=== PATIENT | female | born 1945 | race Caucasian/White ===

== ENCOUNTER 2017-10-12 15:14 | Inpatient (IN) | payer OTHER ==
[~2017-10-12] VITALS: Ht 165.1 cm; Wt 57.2 kg
--- NOTE | 2017-10-12 15:16 | ED DYSPNEA/ASTHMA COMPLAINT ---
History of Present Illness General Chief Complaint: Dyspnea (COPD, CHF, Other) Stated Complaint: SOB Source: patient, old records Exam Limitations: no limitations Vital Signs & Intake/Output Vital Signs & Intake/Output Vital Signs Date Time Temp Pulse Resp B/P B/P Pulse O2 O2 Flow FiO2 Mean Ox Delivery Rate 10/12 1519 98.8 102 22 142/60 98 Aerosol 10L Mask Allergies Coded Allergies: MDX - Cefuroxime (From CEFTIN) (Mild, RASH 10/09/11) Uncoded Allergies: DUST (Severe, RESPIRATORY 02/22/12) ENVIRONMENTAL (Severe, RESPIRATORY 02/22/12) HAY (Severe, RESPIRATORY 02/22/12) Triage Nurses Notes Reviewed? yes Onset: Abrupt Duration: week(s): (1), constant, getting worse Timing: recent history Severity: moderate, severe Activities at Onset: none Prior Episodes/Possible Cause: occasional episodes Associated Symptoms: cough HPI: 72-year-old female nonsmoker history of COPD not on oxygen at home hypertension presents stating that since last week while vacationing in [place] she's had progressively worsening shortness of breath cough productive of green sputum getting worse. She went to an urgent care today at which time EMS was called. She was medicated with Solu-Medrol and breathing treatments in route. She states she checks her oxygen saturation at home which he is normally 90-91% on room air. She denies any leg swelling abdominal pain nausea vomiting diarrhea or she does report a subjective fever chills. (Antolin Anna) Past History Travel History Traveled to [place] past 21 day No Medical History Any Pertinent Medical History? see below for history Cardiovascular: hypertension Respiratory: COPD Tetanus Vaccine: 03/14/12 Surgical History Surgical History: non-contributory Psychosocial History What is your primary language Sierra Leonean Tobacco Use: Never used Family History Hx Contributory? No (Antolin Anna) Review of Systems Review of Systems Constitutional: Reports: see HPI. Comments Review of systems: See HPI, All other systems negative. Constitutional, chills fever HEENT: no sore throat no congestion Cardiovascular: No chest pain , no palpitation Skin: no rashes, no change in skin Respiratory: See HPI GI: No nausea no vomiting, no diarrhea : No dysuria Muscle skeletal: No joint pain, no back pain, no neck pain, Neurologic: , no headache Heme/endocrine: No bruising Immunology: No lymphadenopathy (Antolin Anna) Physical Exam Physical Exam General Appearance: well developed/nourished, alert, awake Respiratory: decreased breath sounds, wheezing Comments: Well-developed well-nourished person in no acute distress HEENT: Normal EENT exam; PERRL, EOMI. HEAD is atraumatic. moist mucous membranes. Neck: Supple, no lymphadenopathy, normal range of motion Back: Full range of motion Cardiovascular: Regular rate and rhythms no murmur Respiratory: No respiratory distress. Patient speaking in 3-4 word sentences, decreased breath sounds bilaterally wheezing and noted in all lung shi no rhonchi no rales Abdomen: Soft, nontender Extremity: No edema, full range of motion of extremities Neuro: Alert oriented x3, motor sensory normal, There were no obvious focal neurologic abnormalities. Skin: No appreciable rash on exposed skin, skin is warm and dry. No diaphoresis Psych: Mood and affect is normal, memory and judgment is normal. Core Measures ACS in differential dx? Yes CVA/TIA Diagnosis No Sepsis Present: No Sepsis Focused Exam Completed? No (Jorge GARCIA,Antolin) Progress Differential Diagnosis: asthma, AMI, bronchitis, costochondritis, CHF, musculoskeletal pain, pulmonary embolism, pneumonia, pneumothorax, unstable angina Diagnostic Imaging: Viewed by Me: Radiology Read. Discussed w/RAD: Radiology Read. Radiology Impression: PATIENT: CINDY RODRÍGUEZ PRESENT AGE: 72 PATIENT ACCOUNT NO: [id number] : 47 LOCATION: [facility] ORDERING PHYSICIAN: Antolin GARCIA SERVICE DATE: 10/12/17 EXAM TYPE: RAD - XRY-PORTABLE CHEST XRAY EXAMINATION: XR PORTABLE CHEST CLINICAL INFORMATION: Shortness of breath. Cough. COMPARISON: Chest x-ray 11/19/2010 TECHNIQUE: Portable frontal view of the chest was obtained. 3:58 PM FINDINGS: There is hyperinflation of lungs with flattening of the diaphragm. There is generalized diffuse streaky and patchy airspace opacities without air bronchograms in the right lower lobe. This is consistent with infiltrate. The left lung is clear. There is no significant central pulmonary vascular congestion. The heart size is normal. The cardiac and mediastinal contours are normal. There are calcifications of the aortic arch. IMPRESSION: Infiltrate right lower lobe. DICTATED BY: Arturo Johnson MD DATE/TIME DICTATED:03/26/18 / 1632 DISTRIBUTION DRIVER:LOPEZ DATE/TIME TRANSCRIBED:10/12/171631 CONFIDENTIAL, DO NOT COPY WITHOUT APPROPRIATE AUTHORIZATION. <Electronically signed in Other Vendor System> SIGNED BY: Elizabeth TITUS,Arturo 10/12/171638 Initial ED EKG: stach at 100, no acute st seg changes, normal axis Rhythm Strip: sinus tachycardia (Antolin Anna) Plan of Care: Orders Procedure Date/time Status Regular Diet 10/13 D Active Regular Diet 10/13 B Active Misc Message 10/12 1701 Active ED Holding Orders 10/12 1701 Active Admit to inpatient 10/12 170 Active Vital Signs 10/12 170 Active Code Status 10/12 170 Active EKG 10/12 1537 Active RAPID VIRAL INFLUENZA A 10/12 152 Active BLOOD CULTURE 10/12 152 Active TROPONIN LEVEL 10/12 152 Complete LACTIC ACID 10/12 152 Complete COMPREHENSIVE METABOLIC PANEL 10/12 152 Complete CBC WITHOUT DIFFERENTIAL 10/12 152 Complete B-TYPE NATRIURETIC PEP (BNP) 10/12 152 Complete Current Medications Sig/Dylon Start time Last Medication Dose Stop Time Status Admin Azithromycin 500 MG ONCE ONE 10/12 1700 AC (Zithromax) 10/12 1759 Dextrose/Water 250 ML (D5W) Ceftriaxone Sodium 1,000 MG ONCE ONE 10/12 1700 UNVr (Rocephin) 10/12 1701 Laboratory Tests 10/12/17 1540: Anion Gap 10, Estimated GFR > 60, BUN/Creatinine Ratio 20.0, Glucose 151 H, Lactic Acid 1.0, Calcium 9.1, Total Bilirubin 0.7, AST 100 H, ALT 140 H, Alkaline Phosphatase 228 H, Troponin I 0.03, Iaw-S-Ifqqawzuiwp Pept 933 H, Total Protein 6.8, Albumin 3.5, Globulin 3.3, Albumin/Globulin Ratio 1.1, CBC w Diff NO MAN DIFF REQ, RBC 4.72, MCV 89.2, MCH 29.3, MCHC 32.8 L, RDW 14.1, MPV 10.4, Gran % 83.3 H, Lymphocytes % 5.0 L, Monocytes % 11.5 H, Eosinophils % 0.1, Basophils % 0.1, Absolute Granulocytes 13.0 H, Absolute Lymphocytes 0.8 L , Absolute Monocytes 1.8 H, Absolute Eosinophils 0, Absolute Basophils 0 Microbiology 10/12 1540 BLOOD: Blood Culture - RECD 10/12 1525 NASOPHARYN: Influenza Virus A & B Rapid Smear - ORD 10/12 1525 BLOOD: Blood Culture - ORD Patient is medicated with Solu-Medrol in route she was given 2 breathing treatments at the urgent care and by EMS prior to arrival she is 90-91% on 39 L. She states she is normally 90% on room air at home. Case discussed with Dr. Dalal (Antolin Anna) (Katlin TITUS,Patrice Munoz) Departure Departure Time of Disposition: 1650 Disposition: STILL A PATIENT Condition: Stable Clinical Impression Primary Impression: Pneumonia Secondary Impressions: COPD exacerbation Referrals: Dev TITUS,Zbigniew Crocker (PCP/Family) Departure Forms: Customer Survey General Discharge Information Admission Note Spoke With: Juaquin Julien MD Documentation of Exam: Documentation of any treatments & extenuating circumstances including Concerns Regarding Discharge (functional status, medication knowledge or non-compliance, living conditions, etc.) that warrant an admission rather than observation: iv abx, iv steroids, trend labs, resp tx prn, premature discharge would be medically harmful, she is not normally o2 dependent (Antolin Anna) PA/ELECTRO PLATER Co-Sign Statement Statement: ED Attending supervision documentation- [X] I saw and evaluated the patient. I have also reviewed all the pertinent lab results and diagnostic results. I agree with the findings and the plan of care as documented in the PA's/ELECTRO PLATER's documentation. Patient presents for evaluation of worsening shortness of breath. Physical examination reveals severely diminished air entry bilaterally with no wheezes rales or rhonchi. [] I have reviewed the ED Record and agree with the PA's/ELECTRO PLATER's documentation. [] Additions or exceptions (if any) to the PAs/ELECTRO PLATER's note and plan are summarized below: [] (Katlin TITUS,Patrice Munoz) Critical Care Note Critical Care Note Critical Care Time: non-applicable (Antolin Anna)
[2017-10-12 15:55] LABS: ABSOLUTE BASOPHIL COUNT 0 /CUMM (0.0-0.2); ABSOLUTE EOSINOPHIL COUNT 0 /CUMM (0.0-0.7); ABSOLUTE LYMPH COUNT 0.8 /CUMM (1.2-3.4); ABSOLUTE MONOCYTE COUNT 1.8 /CUMM (0.10-0.60); BASOPHIL % 0.1 % (0.0-2.0); EOSINOPHIL % 0.1 % (0-5); HEMATOCRIT 42.1 % (37-47); MEAN CORPUSCULAR HGB 29.3 PG (27.0-31.0); MEAN CORPUSCULAR HGB CONC 32.8 G/DL (33.0-37.0); MEAN CORPUSCULAR VOLUME 89.2 FL (81.0-99.0); MEAN PLATELET VOLUME 10.4 FL (7.4-10.4); PLATELET COUNT 232 /CUMM (130-400); RBC DISTRIBUTION WIDTH 14.1 % (11.5-14.5); RED BLOOD CELL CT 4.72 /CUMM (4.20-5.40); WHITE BLOOD CELL COUNT 15.6 /CUMM (4.8-10.8)
[2017-10-12 15:58] LABS: GRANULOCYTE % 83.3 % (42.2-75.2)
--- NOTE | 2017-10-12 16:39 | RADIOLOGY REPORT ---
EXAMINATION: XR PORTABLE CHEST CLINICAL INFORMATION: Shortness of breath. Cough. COMPARISON: Chest x-ray 11/19/2010 TECHNIQUE: Portable frontal view of the chest was obtained. 3:58 PM FINDINGS: There is hyperinflation of lungs with flattening of the diaphragm. There is generalized diffuse streaky and patchy airspace opacities without air bronchograms in the right lower lobe. This is consistent with infiltrate. The left lung is clear. There is no significant central pulmonary vascular congestion. The heart size is normal. The cardiac and mediastinal contours are normal. There are calcifications of the aortic arch. IMPRESSION: Infiltrate right lower lobe.
--- NOTE | 2017-10-12 17:38 | History & Physical ---
Carol TITUS,[facility] 10/12/17 7234: General Information and HPI MD Statement: I have seen and personally examined CINDY RODRÍGUEZ and documented this H&P. The patient is a 72 year old F who presented with a patient stated chief complaint of [Cough, SOB]. Source of Information: patient, old records Exam Limitations: no limitations History of Present Illness: 72 YO Female, non smoker with a PMH of copd, HTN, HLD and hypothyroidism who comes in with worseing cough productive of greeninsh sputum, shortness of breath x 5 days. She had just come back from a girls trip in [place] and on the flight back, one of her friends became sick and was coughing the whole time. She reports subjective fever on the first day and chills but denies nausea, vomiting , chest pain, sorethroat, difficuty swallowing, palpitations, diarrhea or abdomina pain. No trouble with swallowing food. She has a FH of COPD-Father, sister but they were smokers. She is up to date on her influenza and PNA shots her ground operations superintendent is Dr. Steven. Allergies/Medications Compliance With Home Meds: GOOD Past History Travel History Traveled to [place] past 21 day No Medical History Cardiovascular: hypertension Respiratory: COPD Tetanus Vaccine: 03/14/12 Surgical History Surgical History: non-contributory Past Family/Social History Family History Relations & Conditions if any FATHER FH: COPD (chronic obstructive pulmonary disease) SISTER FH: COPD (chronic obstructive pulmonary disease) Review of Systems Review of Systems Constitutional: Reports: chills, fever, malaise, weakness. Respiratory: Reports: cough, short of breath, sputum production, wheezing. Denies: hemoptysis. GI: Denies: abdominal pain, constipation, diarrhea, nausea, changes in stool. Genitourinary: Denies: discharge, dysuria, frequency. Musculoskeletal: Denies: joint pain, joint swelling. Skin: Denies: jaundice, rash. Post Menopausal: Yes Exam & Diagnostic Data Last 24 Hrs of Vital Signs/I&O Vital Signs Date Time Temp Pulse Resp B/P B/P Pulse O2 O2 Flow FiO2 Mean Ox Delivery Rate 10/12 1724 98.3 89 20 133/59 96 Nasal 3.0L Cannula 10/12 1519 98.8 102 22 142/60 98 Aerosol 10L Mask Intake & Output 10/12 1600 10/12 0800 03/26 0000 Intake Total Output Total Balance Patient 126 lb Weight Weight Reported by Patient Measurement Method Physical Exam General Appearance Alert, Oriented X3, Cooperative, No Acute Distress Skin No Significant Lesion Sepsis Skin Exam (color): Normal for Ethnicity HEENT PERRLA, EOMI, Mucous Membr. moist/pink Cardiovascular Regular Rate, Normal S1, Normal S2 Abdomen Normal Bowel Sounds, Soft, No Tenderness Extremities No Edema, Normal Pulses Sepsis Peripheral Pulse Location: Dorsalis Pedis Sepsis Peripheral Pulse Exam: Normal Last 24 Hrs of Labs/Clifford: Laboratory Tests 10/12/17 1540: Anion Gap 10, Estimated GFR > 60, BUN/Creatinine Ratio 20.0, Glucose 151 H, Lactic Acid 1.0, Calcium 9.1, Total Bilirubin 0.7, AST 100 H, ALT 140 H, Alkaline Phosphatase 228 H, Troponin I 0.03, Bmr-[id number]-Xwrdfotpijb Pept 933 H, Total Protein 6.8, Albumin 3.5, Globulin 3.3, Albumin/Globulin Ratio 1.1, CBC w Diff NO MAN DIFF REQ, RBC 4.72, MCV 89.2, MCH 29.3, MCHC 32.8 L, RDW 14.1, MPV 10.4, Gran % 83.3 H, Lymphocytes % 5.0 L, Monocytes % 11.5 H, Eosinophils % 0.1, Basophils % 0.1, Absolute Granulocytes 13.0 H, Absolute Lymphocytes 0.8 L , Absolute Monocytes 1.8 H, Absolute Eosinophils 0, Absolute Basophils 0 Microbiology 10/12 1540 BLOOD: Blood Culture - RECD 10/12 1525 NASOPHARYN: Influenza Virus A & B Rapid Smear - ORD 10/12 1525 BLOOD: Blood Culture - ORD Assessment/Plan Assessment: 72 YO Female, non smoker with a PMH of copd, HTN, HLD and hypothyroidism who comes in with worseing cough productive of greeninsh sputum, shortness of breath x 5 days. Problem List 1. CAP 2. COPD exacerbation Plan Admit to [facility] Ceftriaxone/azithromycin Solumedrol 40mg BID Sputum culture, blood cuture x 2 Check Legionella, strept pneumo Ags Pulm consult Continue her impt home meds TRC nebs, O2 as needed FC Heart healthy diet SC lovenox for DVT ppx Follow attending recs As Ranked By This Provider Problem List: 1. Pneumonia 2. COPD exacerbation Core Measures/Misc (04/05) Acute Coronary Syndrome ACS Diagnosis: No Congestive Heart Failure Congestive Heart Failure Diagnosis No Cerebrovascular Accident CVA/TIA Diagnosis: No VTE (View Protocol) VTE Risk Factors Age>40 No Mechanical VTE Prophylaxis d/t N/A MechProphylax Ordered No VTE Pharm Prophylaxis d/t NA PharmProphylax ordered Sepsis (View protocol) Sepsis Present: No Resident Review Statement Resident Statement: examined this patient Juaquin Julien MD 10/12/17 4324: General Information and HPI Allergies/Medications Allergies: Coded Allergies: cefuroxime (Intermediate, RASH 10/13/17) Uncoded Allergies: DUST (Severe, RESPIRATORY 02/22/12) ENVIRONMENTAL (Severe, RESPIRATORY 02/22/12) HAY (Severe, RESPIRATORY 02/22/12) Home Med list Amlodipine Besylate 10 MG TABLET 1 TAB PO DAILY HIGH BLOOD PRESSURE (Reported ) Amoxicillin/Potassium Clav (Augmentin 875-125 Tablet) 875 MG-125 MG TABLET 1 TAB PO BID PNEUMONIA Azithromycin 250 MG TABLET 1 TAB PO DAILY COPD Fluticasone/Salmeterol (Advair 250-50 Diskus) 250 MCG-50 MCG/DOSE BLST.W.DEV 1 PUF INH BID COPD (Reported) Furosemide 20 MG TABLET 1 TAB PO DAILY HIGH BLOOD PRESSURE (Reported) Guaifenesin (Guaifenesin ER) 600 MG TAB.ER.12H 1 TAB PO BID COUGH Levothyroxine Sodium 50 MCG TABLET 1 TAB PO DAILY THYROID HEALTH (Reported) Montelukast Sodium 10 MG TABLET 1 TAB PO DAILY BREATHING PROBLEMS (Reported) Pravastatin Sodium 40 MG TABLET 1 TAB PO DAILY HIGH CHOLESTROL (Reported) Prednisone 10 MG TABLET 0 PO SEE ADMIN CRITERIA COPD TAKE 40 MG 4 TABS ON 10/16 TAKE 3O MG 3 TABS ON 10/17 & 10/18 TAKE 20 MG 2 TABS ON 10/19 & 10/20 TAKE 10 MG 1 TAB ON 10/21 & 10/22 THEN STOP AND SEE UR LUNG DOCTOR Umeclidinium Camak (Incruse Ellipta) 62.5 MCG/ACTUATION BLST.W.DEV 1 PUF PO DAILY BREATHING PROBLEMS (Reported) Valsartan 160 MG TABLET 1 TAB PO DAILY HIGH BLOOD PRESSURE (Reported) Attending MD Review Statement Attending Statement Attending MD Statement: examined this patient, discuss w/resident/PA/ELECTROLYTIC ETCHER, agreed w/resident/PA/ELECTROLYTIC ETCHER, discussed with family, reviewed EMR data (avail), reviewed images, amended to note Attending Assessment/Plan: The patient is a 72 yo female with h/o known COPD (Dr. Newberry), HTN, HL, and hypothyroid who presented in the ED with c/o 5 day h/o progressive cough productive of greenish sputum, increased dyspnea, ? slight fever. Was seen at an urgent care center and found to be hypoxic with pulse ox in 70's on RA. Was sent to ED for CXR and evaluation. Was found to have RLL infiltrate and diminished breath sounds. Treated in ED with IV Abx and Solumedrol along with aerosol with improvement. She denied any chills, chest pain, palpitations or GI symptoms. Physical Exam: VS: T 98.8, P 102-89, R 22-20, BP 142/60-133/59, PO 98% 10L- 96% 2L HEENT: eyes- PERRLA, EOMI denice- dry mucosa Neck: no JVD Chest: diminished breath sounds diffusely, more diminished at right base Cor: RRR nl S1, S2 w/o murm Abd: BS+, soft, NT Ext: no edema, pulses 2+ Neuro: non-focal Labs/Tests- as above Impression/Plan: #Community Acquired Pneumonia- with RLL infiltrate and green sputum. Leukocytosis noted. Plan: Admit to medical floor. IV Abx Ceftriaxone/Zithromax per protocol. Mucinex/Tessalon Perles. #COPD Exacerbation- no wheeze, however significant diminished breath sounds. Plan: TRC nebs. IV Medrol. #Acute Hypoxic Respiratory Failure- patient not normally on oxygen. Pulse ox was in 70's in urgent care. Improved with treatment in ED. Plan: Nasal oxygen support and monitor pulse oximetry.
[2017-10-12 21:40] VITALS: BP 124/60
--- NOTE | 2017-10-12 23:42 | Admission Certification ---
Admission Certification Certification Statement - As attending physician, I certify that at the time of - admission, based on clinical presentation, severity of - symptoms, need for further diagnostic testing and - therapeutic interventions, and risk of adverse outcomes - without in-hospital treatment, in my clinical assessment, - this patient requires an acute hospital stay for a minimum - of two nights or longer. I have also considered psychsocial - factors such as support system, advanced age, financial - issues, cognitive issues, and failed out-patient treatments, - past re-admission history, safety of patient, and lack of - compliance as applicable. Specific rationale supporting this admission is: The patient presents with acute hypoxic respiratory failure with pulse ox in 70' s on RA in urgent care clinic. COPD exacerbation and RLL community acquired pneumonia. Needs IV antibiotics (Ceftriaxone/Zithromax), IV Medrol, aerosol, and nasal oxygen close respiratory monitoring.
[2017-10-12] MEDS ORDERED: FUROSEMIDE20 M1 PO (23:48)
[2017-10-12] MEDS ORDERED: AMLODIPINE BESY10 M1 PO (23:48)
[2017-10-12] MEDS ORDERED: PRAVASTATIN SOD40 M2 PO (23:49)
[2017-10-12] MEDS ORDERED: MONTELUKAST SOD10 M1 PO (23:49)
[2017-10-12] MEDS ORDERED: LEVOTHYROXINE50 MCG PO (23:49)
[2017-10-12] MEDS ORDERED: VALSARTAN160 M1 PO (23:49)
[2017-10-12] MEDS ORDERED: ADVAIR 250-501 EACH INH (23:49)
[2017-10-12] MEDS ORDERED: INCRUSE ELLI62.5 MCG PO (23:53)
[2017-10-13 04:48] VITALS: BP 130/62
[2017-10-13 06:30] VITALS: BP 110/64
--- NOTE | 2017-10-13 07:07 | PN- Housestaff ---
Moiz TITUS,Alexandra 10/13/17 0707: Subjective Follow-up For: CAP Subjective: Patient seen and examined. Sitting comfortably. Complaining of cough and sputum production. Denies fevers and chills Review of Systems Constitutional: Reports: see HPI. Objective Last 24 Hrs of Vital Signs/I&O Vital Signs Date Time Temp Pulse Resp B/P B/P Pulse O2 O2 Flow FiO2 Mean Ox Delivery Rate 10/13 1429 97.8 86 16 104/72 92 Nasal 3.0L Cannula 10/13 1058 94 Nasal 3.0L Cannula 10/13 1049 Nasal 3.0L Cannula 10/13 0856 84 112/64 10/13 0856 84 112/64 10/13 0800 94 Nasal 3.0L Cannula 10/13 0630 99.0 84 20 110/64 96 10/13 0000 91 Nasal 3.0L Cannula 10/12 2134 91 Nasal 3.0L Cannula 10/12 2045 91 Nasal 3.0L Cannula 10/13 2023 98.1 96 18 110/53 93 Nasal Cannula 10/12 1724 98.3 89 20 133/59 96 Nasal 3.0L Cannula 10/12 1519 98.8 102 22 142/60 98 Aerosol 10L Mask Intake & Output 10/13 1600 10/13 0800 10/13 0000 Intake Total 800 480 970 Output Total Balance 800 480 970 Intake, IV 250 Intake, Oral 800 480 720 Patient 126 lb Weight Weight Reported by Patient Measurement Method Physical Exam General Appearance: Alert, Oriented X3 Cardiovascular: Normal S1, Normal S2, No Murmurs Lungs: decreased breath sounds Abdomen: Normal Bowel Sounds, Soft Neurological: Normal Speech Current Medications: Current Medications Sig/Dylon Start time Last Medication Dose Route Stop Time Status Admin Acetaminophen 650 MG Q6P PRN 10/13 1315 AC PO Albuterol Sulfate 3 ML Q4P PRN 10/13 1100 AC INH Albuterol Sulfate 2 PUF Q4P PRN 10/13 1100 AC INH Amlodipine Besylate 10 MG DAILY 10/13 1000 AC 10/13 PO 0856 Azithromycin 500 MG Q24H 10/13 2014 AC Dextrose/Water 250 ML IV Azithromycin 500 MG DAILY 10/12 1800 DC Dextrose/Water 250 ML IV Azithromycin 500 MG ONCE ONE 10/12 1700 DC 10/12 Dextrose/Water 250 ML IV 10/12 1759 2015 Benzocaine/Menthol 1 JOHANNA Q2P PRN 10/13 1500 AC PO Benzonatate 100 MG TID 10/12 2200 AC 10/13 PO 0856 Ceftriaxone Sodium 1,000 MG Q24H 10/13 2014 AC IV Ceftriaxone Sodium 1,000 MG DAILY 10/13 1000 DC IV Ceftriaxone Sodium 0 .STK-MED ONE 10/12 2002 DC .ROUTE Ceftriaxone Sodium 1,000 MG ONCE ONE 10/12 1700 DC 10/12 IV 10/12 1702015 Enoxaparin Sodium 40 MG DAILY 10/13 1311 AC SC Furosemide 20 MG DAILY 10/13 1000 AC 10/13 PO 0856 Guaifenesin 600 MG Q12 10/12 2200 AC 10/13 PO 0856 Guaifenesin/ 10 ML ONCE ONE 10/13 0245 DC 10/13 Dextromethorphan PO 10/13 024 0347 Levothyroxine Sodium 0.05 MG DAILY AC 10/13 0815 AC 10/13 PO 0856 Losartan Potassium 50 MG DAILY 10/13 1000 AC 10/13 PO 0856 Methylprednisolone 40 MG DAILY 10/13 1000 AC IV Methylprednisolone 40 MG Q12 10/12 2200 DC 10/13 IV 0856 Pravastatin Sodium 20 MG 1700 10/13 1700 AC PO Tiotropium [place] 1 PUF DAILY 10/13 1000 AC 10/13 INH 0856 Last 24 Hrs of Lab/Clifford Results Last 24 Hrs of Labs/Mics: Laboratory Tests 10/13/17 0823: Anion Gap 8, Estimated GFR > 60, BUN/Creatinine Ratio 22.0, Total Bilirubin Pending, Direct Bilirubin Pending, AST Pending, ALT Pending, Alkaline Phosphatase Pending, Total Protein Pending, Albumin Pending, CBC w Diff NO MAN DIFF REQ, RBC 4.43, MCV 89.6, MCH 29.2, MCHC 32.6 L, RDW 14.2, MPV 10.6 H, Gran % 92.5 H, Lymphocytes % 5.2 L, Monocytes % 2.3, Eosinophils % 0, Basophils % 0, Absolute Granulocytes 10.6 H, Absolute Lymphocytes 0.6 L, Absolute Monocytes 0.3, Absolute Eosinophils 0, Absolute Basophils 0 10/12/17 1825: Lactic Acid Cancelled 10/12/17 1540: Anion Gap 10, Estimated GFR > 60, BUN/Creatinine Ratio 20.0, Glucose 151 H, Lactic Acid 1.0, Calcium 9.1, Total Bilirubin 0.7, AST 100 H, ALT 140 H, Alkaline Phosphatase 228 H, Troponin I 0.03, Spc-A-Kzhogtihtzo Pept 933 H, Total Protein 6.8, Albumin 3.5, Globulin 3.3, Albumin/Globulin Ratio 1.1, CBC w Diff NO MAN DIFF REQ, RBC 4.72, MCV 89.2, MCH 29.3, MCHC 32.8 L, RDW 14.1, MPV 10.4, Gran % 83.3 H, Lymphocytes % 5.0 L, Monocytes % 11.5 H, Eosinophils % 0.1, Basophils % 0.1, Absolute Granulocytes 13.0 H, Absolute Lymphocytes 0.8 L , Absolute Monocytes 1.8 H, Absolute Eosinophils 0, Absolute Basophils 0 Microbiology 10/12 1952 LOWER RESP: Respiratory Culture - CAN Cancelled: SPECIMEN NOT RECEIVED IN LABORATORY 10/12 1952 LOWER RESP: Gram Stain - CAN Cancelled: SPECIMEN NOT RECEIVED IN LABORATORY 10/12 1748 NASOPHARYN: Influenza Virus A & B Rapid Smear - COMP 10/12 1745 BLOOD: Blood Culture - RES 10/12 1540 BLOOD: Blood Culture - RES Assessment/Plan Assessment: The patient is a 72 yo female with h/o known COPD (Dr. Newberry), HTN, HL, and hypothyroid who presented in the ED with c/o 5 day h/o progressive cough productive of greenish sputum, increased dyspnea, ? slight fever. Was seen at an urgent care center and found to be hypoxic with pulse ox in 70's on RA. Was sent to ED for CXR and evaluation. Was found to have RLL infiltrate and diminished breath sounds. Treated in ED with IV Abx and Solumedrol along with aerosol with improvement. She is being treated and evaluated for following conditions #Community Acquired Pneumonia- with RLL infiltrate and green sputum. Leukocytosis noted. -Monitor fever WBC curve -F/U Urine Legionella and strep antigen -Blood cultures negative so far -Follow-up sputum cultures -IV Abx Ceftriaxone/Zithromax per protocol. -Mucinex/Tessalon Perles. #COPD Exacerbation- no wheeze, however significant diminished breath sounds. -TRC nebs. -IV SoluMedrol 40mg #Acute Hypoxic Respiratory Failure- patient not normally on oxygen. Pulse ox was in 70's in urgent care. Improved with treatment in ED. -Nasal oxygen support and monitor pulse oximetry. #Transaminitis likely in setting from pneumonia -Continue to monitor -if Does not improve consider right upper quadrant ultrasound Regular diet DVT prophylaxis with LOVENOX FULL CODE Problem List: 1. Pneumonia Pain Ratin Pain Location: n/a Pain Goal: Pain 4 or less Pain Plan: prn Tomorrow's Labs & Rationales: cbc bep lfts Deandra Cardenas MD 10/13/17 1448: Attending MD Review Statement Attending Statement Attending MD Statement: examined this patient, discuss w/resident/PA/OVERCOIL STEPPER, agreed w/resident/PA/OVERCOIL STEPPER, reviewed EMR data (avail) Attending Assessment/Plan: 72F PMH COPD (Dr. Newberry), HTN, HL, and hypothyroid admitted with 5 days of fever, productive cough with green sputum, dyspnea, lethargy, and right anterior pleuritic chest pain, found to have RLL pneumonia on CXR. Patient feels much better today. She is breathing more comfortably though still has discomfort with deep inspiration. Mild wheezing on exam, saturating well on 3L NC (Not on home oxygen). Her appetite is slowly returning. 1. RLL pneumonia 2. Acute hypoxemic respiratory failure 3. Pleuritic chest pain 4. Transaminitis 5. COPD Exacerbation Plan - Continue on general medicine - Continue Ceftriaxone and Azithromycin - Follow cultures - Solumedrol taper - Pulmonary consult - Motrin for pain - Titrate down oxygen as tolerated - Continue home medications - DVT PPx
--- NOTE | 2017-10-13 10:03 | Cons- Pulmonary ---
General Information and HPI Consulting Request Date of Consult: 10/13/17 Requested By: Larry Reason for Consult: Hypoxic acute respiratory failure right lower lobe community acquired pneumonia History of Present Illness: Patient is 72-year-old with history of COPD on Spiriva was in her usual state of health until returning from [place] she developed fever chills cough productive of discolored sputum and right-sided chest pain. She started amoxicillin and prednisone on her own at home failed to improve was admitted yesterday with reduced oxygen saturation leukocytosis and right lower lobe infiltrate. He said no hemoptysis. Allergies/Medications Allergies: Coded Allergies: cefuroxime (Intermediate, RASH 10/13/17) Uncoded Allergies: DUST (Severe, RESPIRATORY 02/22/12) ENVIRONMENTAL (Severe, RESPIRATORY 02/22/12) HAY (Severe, RESPIRATORY 02/22/12) Home Med List: Amlodipine Besylate 10 MG TABLET 1 TAB PO DAILY HIGH BLOOD PRESSURE (Reported ) Fluticasone/Salmeterol (Advair 250-50 Diskus) 250 MCG-50 MCG/DOSE BLST.W.DEV 1 PUF INH BID COPD (Reported) Furosemide 20 MG TABLET 1 TAB PO DAILY HIGH BLOOD PRESSURE (Reported) Levothyroxine Sodium 50 MCG TABLET 1 TAB PO DAILY THYROID HEALTH (Reported) Montelukast Sodium 10 MG TABLET 1 TAB PO DAILY BREATHING PROBLEMS (Reported) Pravastatin Sodium 40 MG TABLET 1 TAB PO DAILY HIGH CHOLESTROL (Reported) Umeclidinium [place] (Incruse Ellipta) 62.5 MCG/ACTUATION BLST.W.DEV 1 PUF PO DAILY BREATHING PROBLEMS (Reported) Valsartan 160 MG TABLET 1 TAB PO DAILY HIGH BLOOD PRESSURE (Reported) Review of Systems Review of Systems Constitutional: Reports: chills, fever. Denies: diaphoresis. Cardiovascular: Reports: chest pain. Respiratory: Reports: cough, short of breath, sputum production. GI: Denies: abdominal pain, diarrhea, melena. Past History Travel History Traveled to [place] past 21 day No Medical History Blood Transfusion Hx: No Cardiovascular: hypertension, hyperlipidemia Respiratory: COPD Surgical History Surgical History: non-contributory Family History Relations & Conditions If Any: FATHER FH: COPD (chronic obstructive pulmonary disease) SISTER FH: COPD (chronic obstructive pulmonary disease) Psychosocial History Where Do You Live? Home Services at Home: None Smoking Status: Former Smoker Exam & Diagnostic Data Last 24 Hrs of Vital Signs/I&O Vital Signs Date Time Temp Pulse Resp B/P B/P Pulse O2 O2 Flow FiO2 Mean Ox Delivery Rate 10/13 0856 84 112/64 10/13 0856 84 112/64 10/13 0630 99.0 84 20 110/64 96 10/13 0000 91 Nasal 3.0L Cannula 10/124 91 Nasal 3.0L Cannula 10/12 2044 91 Nasal 3.0L Cannula 10/13 2023 98.1 96 18 110/53 93 Nasal Cannula 10/12 1724 98.3 89 20 133/59 96 Nasal 3.0L Cannula 10/12 1519 98.8 102 22 142/60 98 Aerosol 10L Mask Intake & Output 10/13 1600 10/13 0800 10/13 0000 Intake Total 480 970 Output Total Balance 480 970 Intake, IV 250 Intake, Oral 480 720 Patient 126 lb Weight Weight Reported by Patient Measurement Method Oxygen saturation 3 L 96% HEENT exam shows no adenopathy exam for chest shows diminished breath sounds are no wheezes cardiac exam shows a regular S1 and S2 without murmurs abdomen is soft there is no right upper quadrant tenderness there is no edema Last 48 Hrs of Labs/Clifford: Laboratory Tests 10/13/17 0823: Anion Gap 8, Estimated GFR > 60, BUN/Creatinine Ratio 22.0, CBC w Diff Pending, WBC Pending, RBC Pending, Hgb Pending, Hct Pending, MCV Pending, MCH Pending, MCHC Pending, RDW Pending, Plt Count Pending, MPV Pending 10/12/17 1825: Lactic Acid Cancelled 10/12/17 1540: Anion Gap 10, Estimated GFR > 60, BUN/Creatinine Ratio 20.0, Glucose 151 H, Lactic Acid 1.0, Calcium 9.1, Total Bilirubin 0.7, AST 100 H, ALT 140 H, Alkaline Phosphatase 228 H, Troponin I 0.03, Nsm-R-Bnpnhdqvkxg Pept 933 H, Total Protein 6.8, Albumin 3.5, Globulin 3.3, Albumin/Globulin Ratio 1.1, CBC w Diff NO MAN DIFF REQ, RBC 4.72, MCV 89.2, MCH 29.3, MCHC 32.8 L, RDW 14.1, MPV 10.4, Gran % 83.3 H, Lymphocytes % 5.0 L, Monocytes % 11.5 H, Eosinophils % 0.1, Basophils % 0.1, Absolute Granulocytes 13.0 H, Absolute Lymphocytes 0.8 L , Absolute Monocytes 1.8 H, Absolute Eosinophils 0, Absolute Basophils 0 Microbiology 10/129 NASOPHARYN: Influenza Virus A & B Rapid Smear - COMP Assessment/Plan Impression/Plan: 72-year-old with severe COPD admitted with right lower lobe infiltrate secondary to community acquired pneumonia and acute hypoxic respiratory failure in the setting of severe COPD. Etiology of abnormal LFTs uncertain with benign abdominal exam. Recommendations: Continue IV antibiotics IV steroids and bronchodilators. Obtain sputum C&S. Consider right upper quadrant ultrasound in view of abnormal LFTs. Urine for Legionella and pneumococcal antigen. Taper FiO2 his saturations allow. DVT prophylaxis Consult Acknowledgment - Thank you for your consult request.
[2017-10-13 10:47] LABS: ABSOLUTE BASOPHIL COUNT 0 /CUMM (0.0-0.2); ABSOLUTE EOSINOPHIL COUNT 0 /CUMM (0.0-0.7); ABSOLUTE GRANULOCYTE CT 10.6 /CUMM (1.4-6.5); ABSOLUTE LYMPH COUNT 0.6 /CUMM (1.2-3.4); ABSOLUTE MONOCYTE COUNT 0.3 /CUMM (0.10-0.60); BASOPHIL % 0 % (0.0-2.0); EOSINOPHIL % 0 % (0-5); HEMATOCRIT 39.7 % (37-47); MEAN CORPUSCULAR HGB 29.2 PG (27.0-31.0); MEAN CORPUSCULAR HGB CONC 32.6 G/DL (33.0-37.0); MEAN CORPUSCULAR VOLUME 89.6 FL (81.0-99.0); MEAN PLATELET VOLUME 10.6 FL (7.4-10.4); RBC DISTRIBUTION WIDTH 14.2 % (11.5-14.5); RED BLOOD CELL CT 4.43 /CUMM (4.20-5.40); WHITE BLOOD CELL COUNT 11.5 /CUMM (4.8-10.8)
[2017-10-13 11:48] LABS: PLATELET COUNT 253 /CUMM (130-400)
[2017-10-13 11:49] LABS: GRANULOCYTE % 92.5 % (42.2-75.2)
[2017-10-13 14:29] VITALS: BP 104/72
[2017-10-13 22:45] VITALS: BP 122/53
[2017-10-14 07:05] VITALS: BP 128/56
--- NOTE | 2017-10-14 07:39 | PN- Housestaff ---
Moiz TITUS,Alexandra 10/14/17 0739: Subjective Follow-up For: CAP COPD Subjective: Patient seen and examined. Resting comfortably. Continues to report cough otherwise reports improvement in symptoms. Denies fevers and chills or any other complaints. Review of Systems Constitutional: Reports: see HPI. Objective Last 24 Hrs of Vital Signs/I&O Vital Signs Date Time Temp Pulse Resp B/P B/P Pulse O2 O2 Flow FiO2 Mean Ox Delivery Rate 10/14 09 98.0 83 20 128/56 10/14 0917 98.0 83 20 128/56 10/14 0800 94 Nasal 3.0L Cannula 10/14 0705 98.0 83 20 128/56 96 Nasal 3.0L Cannula 10/14 0000 96 Nasal 3.0L Cannula 10/13 2245 98.1 85 20 122/53 96 Nasal 3.0L Cannula 10/13 1600 94 Nasal 3.0L Cannula 10/13 1429 97.8 86 16 104/72 92 Nasal 3.0L Cannula Intake & Output 10/14 1600 10/14 0800 10/14 0000 Intake Total 490 240 Output Total 650 Balance 490 -410 Intake, IV 250 Intake, Oral 240 240 Number 0 Bowel Movements Output, Urine 650 Physical Exam General Appearance: Alert, Oriented X3, Cooperative Skin: No Rashes HEENT: Atraumatic Cardiovascular: Normal S1, Normal S2, No Murmurs Lungs: minimal wheezes Abdomen: Normal Bowel Sounds, Soft, No Tenderness Neurological: Normal Speech Current Medications: Current Medications Sig/Dylon Start time Last Medication Dose Route Stop Time Status Admin Acetaminophen 650 MG Q6P PRN 10/13 1315 AC PO Albuterol Sulfate 3 ML Q4P PRN 10/13 1100 AC INH Albuterol Sulfate 2 PUF Q4P PRN 10/13 1100 AC INH Amlodipine Besylate 10 MG DAILY 10/13 1000 AC 10/14 PO 0917 Azithromycin 500 MG Q24H 10/13 Dextrose/Water 250 ML IV 2120 Benzocaine/Menthol 1 JOHANNA Q2P PRN 10/13 1500 AC 10/13 PO 2143 Benzonatate 100 MG TID 10/12 2200 AC 10/14 PO 0917 Ceftriaxone Sodium 1,000 MG Q24H 10/13 IV 2120 Enoxaparin Sodium 40 MG DAILY 10/13 1311 AC 10/14 SC 0917 Furosemide 20 MG DAILY 10/13 1000 AC 10/14 PO 0917 Guaifenesin 10 ML ONCE ONE 10/13 2315 DC 10/13 PO 10/13 2316 2337 Guaifenesin 600 MG Q12 10/12 2200 AC 10/14 PO 0917 Levothyroxine Sodium 0.05 MG DAILY AC 10/13 0815 AC 10/14 PO 0528 Losartan Potassium 50 MG DAILY 10/13 1000 AC 10/14 PO 0917 Melatonin 5 MG AT BEDTIME 10/14 2200 AC PO Methylprednisolone 40 MG DAILY 10/13 1000 DC 10/14 IV 0918 Patient Medication 1 ED ONE ONE 10/13 1600 DC 10/13 Teaching ED 10/13 1601 1845 Pravastatin Sodium 20 MG 1700 10/13 1700 AC 10/13 PO 1845 Prednisone 40 MG DAILY 10/15 1000 AC PO 10/15 1001 Tiotropium [place] 1 PUF DAILY 10/13 1000 AC 10/14 INH 0917 Last 24 Hrs of Lab/Clifford Results Last 24 Hrs of Labs/Mics: Laboratory Tests 10/14/17 0611: Anion Gap 9, Estimated GFR > 60, BUN/Creatinine Ratio 23.3, Total Bilirubin 0.3, Direct Bilirubin 0.3, AST 49 H, ALT 99 H, Alkaline Phosphatase 162 H, Total Protein 5.6 L, Albumin 2.8 L, CBC w Diff NO MAN DIFF REQ, RBC 4.29, MCV 88.7, MCH 29.0, MCHC 32.7 L, RDW 13.9, MPV 10.5 H, Gran % 86.7 H, Lymphocytes % 6.3 L, Monocytes % 7.0, Eosinophils % 0, Basophils % 0, Absolute Granulocytes 15.1 H, Absolute Lymphocytes 1.1 L, Absolute Monocytes 1.2 H, Absolute Eosinophils 0, Absolute Basophils 0 Microbiology 10/14 730 URINE ROUT: Legionella Antigen - COLB 10/14 730 URINE ROUT: Streptococcus pneumoniae Antigen (M - COLB 10/14 730 LOWER RESP: Respiratory Culture - COLB 10/14 730 LOWER RESP: Gram Stain - COLB Assessment/Plan Assessment: The patient is a 72 yo female with h/o known COPD (Dr. Newberry), HTN, HL, and hypothyroid who presented in the ED with c/o 5 day h/o progressive cough productive of greenish sputum, increased dyspnea, slight fever. Was seen at an urgent care center and found to be hypoxic with pulse ox in 70's on RA. Was sent to ED for CXR and evaluation. Was found to have RLL infiltrate and diminished breath sounds. Treated in ED with IV Abx and Solumedrol along with aerosol with improvement. She is being treated and evaluated for following conditions #Community Acquired Pneumonia- with RLL infiltrate and green sputum. -Monitor fever WBC curve, status was initially improving now up trending secondary to steroid -Urine Legionella and strep antigen negative -Blood cultures negative so far -Follow-up sputum cultures -IV Abx Ceftriaxone/Zithromax, discharged on Augmentin and azithromycin -Mucinex/Tessalon Perles. #COPD Exacerbation- no wheeze, however significant diminished breath sounds. -TRC nebs. -IV SoluMedrol 40mg today, so sure from tomorrow and start on steroid taper #Acute Hypoxic Respiratory Failure- patient not normally on oxygen. Pulse ox was in 70's in urgent care. Improved with treatment in ED. -Nasal oxygen support and monitor pulse oximetry. -Patient will be discharged tomorrow ,possibly with oxygen #Transaminitis likely in setting from pneumonia -Continue to monitor- improving -Right upper quadrant ultrasound showed liver is within normal limits and a possible polyp or small stone in the gallbladder Regular diet DVT prophylaxis with LOVENOX FULL CODE Problem List: 1. Pneumonia 2. COPD exacerbation Pain Ratin Pain Location: n/a Pain Goal: Pain 4 or less Pain Plan: prn Tomorrow's Labs & Rationales: none Deandra Cardenas MD 10/14/17 1110: Attending MD Review Statement Attending Statement Attending MD Statement: examined this patient, discuss w/resident/PA/RESEARCH ASSOCIATE, agreed w/resident/PA/RESEARCH ASSOCIATE, reviewed EMR data (avail) Attending Assessment/Plan: 72F PMH COPD (Dr. Newberry), HTN, HL, and hypothyroid admitted with 5 days of fever, productive cough with green sputum, dyspnea, lethargy, and right anterior pleuritic chest pain, found to have RLL pneumonia on CXR. Patient feels much better today. She is breathing more comfortably though still has discomfort with deep inspiration. Mild wheezing on exam, saturating well on 3L NC (Not on home oxygen). Her appetite is slowly returning. 1. RLL pneumonia 2. Acute hypoxemic respiratory failure 3. Pleuritic chest pain 4. Transaminitis 5. COPD Exacerbation Plan - Continue on general medicine - Continue Ceftriaxone and Azithromycin, on discharge Augmentin to complete 7 day course and Azithro to complete 5 day course - Follow cultures - Solumedrol taper, switch to Prednisone tomorrow - Pulmonary consult - Motrin for pain - Titrate down oxygen as tolerated - Continue home medications - DVT PPx - Anticipated discharge tomorrow, possibly with oxygen, to home - No labs tomorrow - Send CMR to pharmacy for review
[2017-10-14 08:19] LABS: ABSOLUTE BASOPHIL COUNT 0 /CUMM (0.0-0.2); ABSOLUTE EOSINOPHIL COUNT 0 /CUMM (0.0-0.7); ABSOLUTE GRANULOCYTE CT 15.1 /CUMM (1.4-6.5); ABSOLUTE LYMPH COUNT 1.1 /CUMM (1.2-3.4); ABSOLUTE MONOCYTE COUNT 1.2 /CUMM (0.10-0.60); BASOPHIL % 0 % (0.0-2.0); EOSINOPHIL % 0 % (0-5); HEMATOCRIT 38.1 % (37-47); MEAN CORPUSCULAR HGB CONC 32.7 G/DL (33.0-37.0); MEAN CORPUSCULAR VOLUME 88.7 FL (81.0-99.0); MEAN PLATELET VOLUME 10.5 FL (7.4-10.4); RBC DISTRIBUTION WIDTH 13.9 % (11.5-14.5); RED BLOOD CELL CT 4.29 /CUMM (4.20-5.40)
--- NOTE | 2017-10-14 08:26 | PN- Pulmonary ---
Subjective HPI/Critical Care Issues: Patient shortness of breath is improved. She denies abdominal symptoms and LFTs are improving. Objective Current Medications: Current Medications Sig/Dylon Start time Last Medication Dose Route Stop Time Status Admin Acetaminophen 650 MG Q6P PRN 10/13 1315 AC PO Albuterol Sulfate 3 ML Q4P PRN 10/13 1100 AC INH Albuterol Sulfate 2 PUF Q4P PRN 10/13 1100 AC INH Amlodipine Besylate 10 MG DAILY 10/13 1000 AC 10/13 PO 0856 Azithromycin 500 MG Q24H 10/13 2014 AC 10/13 Dextrose/Water 250 ML IV 2120 Benzocaine/Menthol 1 JOHANNA Q2P PRN 10/13 1500 AC 10/13 PO 2143 Benzonatate 100 MG TID 10/12 2200 AC 10/13 PO 2119 Ceftriaxone Sodium 1,000 MG Q24H 10/13 2014 AC 10/13 IV 2120 Ceftriaxone Sodium 1,000 MG DAILY 10/13 1000 DC IV Enoxaparin Sodium 40 MG DAILY 10/13 1311 AC 10/13 SC 1844 Furosemide 20 MG DAILY 10/13 1000 AC 10/13 PO 0856 Guaifenesin 10 ML ONCE ONE 10/13 2315 DC 10/13 PO 10/13 2316 2337 Guaifenesin 600 MG Q12 10/12 2200 AC 10/13 PO 2119 Levothyroxine Sodium 0.05 MG DAILY AC 10/13 0815 AC 10/14 PO 0528 Losartan Potassium 50 MG DAILY 10/13 1000 AC 10/13 PO 0856 Melatonin 5 MG AT BEDTIME 10/14 2200 AC PO Methylprednisolone 40 MG DAILY 10/13 1000 AC IV Methylprednisolone 40 MG Q12 10/12 2200 DC 10/13 IV 0856 Patient Medication 1 ED ONE ONE 10/13 1600 DC 10/13 Teaching ED 10/13 1601 1845 Pravastatin Sodium 20 MG 1700 10/13 1700 AC 10/13 PO 1845 Tiotropium [place] 1 PUF DAILY 10/13 1000 AC 10/13 INH 0856 Vital Signs & I&O Last 24 Hrs of Vitals and I&O: Vital Signs Date Time Temp Pulse Resp B/P B/P Pulse O2 O2 Flow FiO2 Mean Ox Delivery Rate 10/14 0705 98.0 83 20 128/56 96 Nasal 3.0L Cannula 10/14 0000 96 Nasal 3.0L Cannula 10/13 2245 98.1 85 20 122/53 96 Nasal 3.0L Cannula 10/13 1600 94 Nasal 3.0L Cannula 10/13 1429 97.8 86 16 104/72 92 Nasal 3.0L Cannula 10/13 1058 94 Nasal 3.0L Cannula 10/13 1049 Nasal 3.0L Cannula 10/13 0856 84 112/64 10/13 0856 84 112/64 Intake & Output 10/14 1600 10/14 0800 10/14 0000 Intake Total 490 240 Output Total 650 Balance 490 -410 Intake, IV 250 Intake, Oral 240 240 Number 0 Bowel Movements Output, Urine 650 3 L nasal oxygen saturation 96% exam for chest shows diminished breath sounds are no wheezes or crackles cardiac exam shows a regular S1 and S2 without murmurs Impression/Plan Impression/Plan Impression/Plan: 72-year-old with significant COPD admitted with community acquired pneumonia and acute hypoxic respiratory failure which appears to be improving. Recommendations: Continue IV antibiotics . Obtain sputum C&S. right upper quadrant ultrasound is pending. Taper FiO2 his saturations allow. DC IV steroids begin prednisone orally.
[2017-10-14 09:12] LABS: GRANULOCYTE % 86.7 % (42.2-75.2); PLATELET COUNT 271 /CUMM (130-400); WHITE BLOOD CELL COUNT 17.5 /CUMM (4.8-10.8)
--- NOTE | 2017-10-14 11:19 | ULTRASOUND REPORT ---
EXAMINATION: US ABDOMEN LIMITED CLINICAL INFORMATION: Transaminitis and abnormal liver functions.. COMPARISON: None. TECHNIQUE: Real-time imaging of the right upper quadrant abdominal viscera. FINDINGS: PANCREAS: Normal. LIVER: The liver demonstrates normal size, contour and echogenicity. No focal lesion or intrahepatic biliary duct dilatation. GALLBLADDER: The gallbladder is physiologically distended. There is a 0.2 x 0.1 cm echogenic focus in the posterior gallbladder wall, which may be consistent with a small calculus versus a polyp. It is not mobile. No other echogenic calculi are seen, and there is no evidence of sludge or wall thickening. There is no pericholecystic fluid. The patient was not tender in the right upper quadrant. COMMON BILE DUCT: Normal in caliber measuring 0.3 cm in diameter. RIGHT KIDNEY: There is no hydronephrosis. No renal calculi or focal parenchymal lesions.; There is a 0.6 x 0.4 x 0.6 cm cyst at the midpole. The kidney measures 9.0 cm in maximum dimension. FREE FLUID: None. IMPRESSION: 1. The liver appears normal on ultrasound. 2. There is an nonmobile focal area of echogenicity in the wall of the gallbladder as described above.
[2017-10-14 14:28] VITALS: BP 124/60
[2017-10-14] MEDS ORDERED: GUAIFENESIN ER600 MG PO (14:52)
[2017-10-14] MEDS ORDERED: PREDNISONE10 M2 PO ×2 (14:52→16:04)
[2017-10-14] MEDS ORDERED: AUGMENTIN 875-1 EACH PO (14:52)
[2017-10-14] MEDS ORDERED: AZITHROMYCIN250 M1 PO ×2 (14:52→14:53)
--- NOTE | 2017-10-14 14:55 | Patient Discharge Instructions ---
Discharge Instructions General Discharge Information You were seen/treated for: Community-acquired pneumonia COPD exacerbation Watch for these problems: Fever, shortness of breath, chills, chest pain, diarrhea Special Instructions: Please follow-up with your PCP after discharge Please follow-up with your legal project manager after 1 week of discharge Diet Continue normal diet: Yes Activity Full Activity/No Limits: Yes Acute Coronary Syndrome Inclusion Criteria At DC or during hospital stay patient has or had the following: ACS DIAGNOSIS No Discharge Core Measures Meds if any: Prescribed or Continued at Discharge Meds if any: NOT Prescribed or Continued at Discharge Congestive Heart Failure Inclusion Criteria At DC or during hospital stay patient has or had the following: CHF DIAGNOSIS No Discharge Core Measures Meds if any: Prescribed or Continued at Discharge Meds if any: NOT Prescribed or Continued at Discharge Cerebrovascular accident Inclusion Criteria At DC or during hospital stay patient has or had the following: CVA/TIA Diagnosis No Discharge Core Measures Meds if any: Prescribed or Continued at Discharge Meds if any: NOT Prescribed or Continued at Discharge Venous thromboembolism Inclusion Criteria VTE Diagnosis No VTE Type NONE VTE Confirmed by (Test) NONE Discharge Core Measures - Per Current guidelines, there needs to be overlap - treatment for the first 5 days of Warfarin therapy. - If discharged on Warfarin prior to 5 days of - overlap therapy, the patient will need to be - assessed for post discharge needs including - *Post discharge parental anticoagulation - *Warfarin and/or parental anticoagulation education - *Follow up date to check INR post discharge At least 5 days overlap therapy as Inpatient No Meds if any: Prescribed or Continued at Discharge Note: Overlap Therapy is Warfarin and Anticoagulant Meds if any: NOT Prescribed or Continued at Discharge
[2017-10-14 23:40] VITALS: BP 128/62
[2017-10-15 06:49] VITALS: BP 129/65
--- NOTE | 2017-10-15 07:33 | Discharge Summary ---
Visit Information Visit Dates Admission Date: 10/12/17 Discharge Date: 10/16/17 Hospital Course Course Attending Physician: Deandra Cardenas MD Primary Care Physician: Dev TITUS,Zbigniew Crocker Hospital Course: The patient is 72-year-old female with known history of COPD follows up with Dr. Sorto, hypertension, hyperlipidemia, hypothyroidism. She presented to [place] ED on 10/12 with complain of progressive cough productive of greenish sputum, increased dyspnea x 5days. She was seen at an urgent care center and was found to be hypoxic with pulse ox in 70's on RA. She was sent to ED for evaluation and chest x-ray. On presentation afebrile, mildly tachycardic up to 102, respiratory rate 22-20, oxygen saturation 98% 10L- 96% 2L Labs were pertinent for leukocytosis with WBC count of 15.6, mild hyponatremia with sodium 130, BUN 31, transaminitis AST 100, ALT 140 alkaline phosphatase 228 Chest x-ray was positive for hyper inflation of lungs with flattening of diaphragms, patchy airspace opacities with air bronchograms and right lower lobe consistent with infiltrate She was admitted to general medicine floor and was treated and evaluated for Community-acquired pneumonia. Patient's symptom along with leukocytosis and right lower lobe infiltrate were consistent with CAP. She was initially treated with IV ceftriaxone and Zithromax (recieved 5 days inpatient) and is being transitioned to PO Augmentin to complete 7 days course. She was also treated for mild COPD exacerbation with IV steroids and is being discharged on a oral steroid taper(1 week). She has remained afebrile during her stay with white count initially trending down later up trending most likely secondary to steroids. Patient was found to be in acute hypoxic respiratory failure at urgent care with oxygen saturation in 70s most likely secondary to CAP and COPD. She is not on home oxygen and continued to require 2L NC to maintain o2 sats above 92%, on ambulation her sats dropped to 81% on 3L. Repeat chest x-ray did not show any effusion and showed slight improvement. PE has been ruled out as cause of her desaturation with negative CTA. She will be discharged on home oxygen. She also was found to have transaminitis most likely secondary to ongoing infectious process. Her LFTs are trending down, ultrasound of right upper quadrant showed normal size, contour and echogenicity. No focal lesion or intrahepatic biliary duct dilation. However there was 0.2 x 0.1 cm immobile echogenic focus in the posterior gallbladder wall, which may be consistent with a small calculus vs a polyp. She is asymptomatic at present. -Patient has been counseled to follow-up with PCP and coin dealer after discharge -She has been counseled to finish antibiotic and steriod taper as directed -She will require a follow-up chest x-ray and monitoring of LFTs All her home medications were continued DVT prophylaxis was achieved with Alps and Lovenox She was full code during her stay Allergies: Coded Allergies: cefuroxime (Intermediate, RASH 10/13/17) Uncoded Allergies: DUST (Severe, RESPIRATORY 02/22/12) ENVIRONMENTAL (Severe, RESPIRATORY 02/22/12) HAY (Severe, RESPIRATORY 02/22/12) Disposition Summary Disposition Principal Diagnosis: Community-acquired pneumonia Additional Diagnosis: mild COPD exacerbation Discharge Disposition: home or self care Discharge Instructions General Discharge Information Code Status: Full Code Patient's Diet: As tolerated Patient's Activity: As tolerated Follow-Up Instructions/Appts: Please follow-up with PCP after discharge Please follow-up with coin dealer after finishing steriod taper, or earlier if worsening or no improvement of symptoms Medications at Discharge Discharge Medications: Continue taking these medications: Amlodipine Besylate (Amlodipine Besylate) 10 MG TABLET 1 Tablet ORAL DAILY Qty = 90 Comments: Last Taken: 10/16/17 Time: 9:30 AM Furosemide (Furosemide) 20 MG TABLET 1 Tablet ORAL DAILY Qty = 90 Comments: Last Taken: 10/16/17 Time: 9:30 AM Pravastatin Sodium (Pravastatin Sodium) 40 MG TABLET 1 Tablet ORAL DAILY Qty = 90 Comments: Last Taken: 10/16/17 Time: 4:30 PM Levothyroxine Sodium (Levothyroxine Sodium) 50 MCG TABLET 1 Tablet ORAL DAILY Qty = 90 Comments: Last Taken: 10/16/17 Time: 5:30 AM Fluticasone/Salmeterol (Advair 250-50 Diskus) 250 MCG-50 MCG/DOSE BLST.W.DEV 1 Puff Inhale through mouth TWICE DAILY Qty = 180 Comments: NOT GIVEN IN HOSPITAL Montelukast Sodium (Montelukast Sodium) 10 MG TABLET 1 Tablet ORAL DAILY Qty = 90 Comments: NOT GIVEN IN HOSPITAL Valsartan (Valsartan) 160 MG TABLET 1 Tablet ORAL DAILY Qty = 90 Comments: Last Taken: 10/16/17 Time: 9:30 AM Umeclidinium [place] (Incruse Ellipta) 62.5 MCG/ACTUATION BLST.W.DEV 1 Puff ORAL DAILY Qty = 90 Comments: NOT GIVEN IN HOSPITAL Start taking the following new medications: Amoxicillin/Potassium Clav (Augmentin 875-125 Tablet) 875 MG-125 MG TABLET 1 Tablet ORAL TWICE DAILY Qty = 4 No Refills Instructions: . Comments: NOT GIVEN IN HOSPITAL Guaifenesin (Guaifenesin ER) 600 MG TAB.ER.12H 1 Tablet ORAL TWICE DAILY Qty = 10 No Refills Instructions: . Comments: Last Taken: 10/16/17 Time: 9:30 AM Prednisone (Prednisone) 10 MG TABLET 0 ORAL SEE INSTRUCTIONS Qty = 12 No Refills Instructions: TAKE 30 MG 3 TABS ON 10/17 & 10/18 TAKE 2O MG 2 TABS ON 10/19 & 10/20 TAKE 10 MG 1 TABS ON 10/21 & 10/22 Comments: Last Taken: 10/16/17 Time: 9:30 AM Copies To: Coni TITUS,Steven Kidd; Dev TITUS,Zbigniew Crocker
--- NOTE | 2017-10-15 07:33 | PN- Housestaff ---
See Addendum Subjective Follow-up For: CAP COPD Subjective: Patient seen and examined. Resting comfortably. Offers no complaints. Reports improvement in symptoms. Continues to have cough. Review of Systems Constitutional: Reports: see HPI. Objective Last 24 Hrs of Vital Signs/I&O Vital Signs Date Time Temp Pulse Resp B/P B/P Pulse O2 O2 Flow FiO2 Mean Ox Delivery Rate 10/15 0800 90 Nasal 2.0L Cannula 10/15 0649 98.2 74 20 129/65 96 Nasal 2.0L Cannula 10/15 0000 94 Nasal 2.0L Cannula 10/14 2340 97.9 79 20 128/62 94 Nasal 2.0L Cannula 10/14 2040 96 Nasal 2.0L Cannula 10/14 1600 94 Nasal 2.0L Cannula 10/14 1436 93 Nasal 2.0L Cannula 10/14 1428 97.4 79 20 124/60 93 Nasal 2.0L Cannula Intake & Output 10/15 1600 10/15 0800 10/15 0000 Intake Total 120 Output Total Balance 120 Intake, Oral 120 Physical Exam General Appearance: Alert, Oriented X3, Cooperative Cardiovascular: Normal S1, Normal S2 Lungs: minmal wheezes Abdomen: Normal Bowel Sounds, Soft, No Tenderness Neurological: Normal Speech Current Medications: Current Medications Sig/Dylon Start time Last Medication Dose Route Stop Time Status Admin Acetaminophen 650 MG Q6P PRN 10/13 1315 AC PO Albuterol Sulfate 3 ML Q4P PRN 10/13 1100 AC INH Albuterol Sulfate 2 PUF Q4P PRN 10/13 1100 AC INH Amlodipine Besylate 10 MG DAILY 10/13 1000 AC 10/14 PO 0917 Azithromycin 500 MG Q24H 10/13 Dextrose/Water 250 ML IV 212 Benzocaine/Menthol 1 JOHANNA Q2P PRN 10/13 1500 AC 10/13 PO 2143 Benzonatate 100 MG TID 10/12 2200 AC 10/14 PO 2123 Ceftriaxone Sodium 1,000 MG Q24H 10/13 IV 2123 Enoxaparin Sodium 40 MG DAILY 10/13 1311 AC 10/14 SC 0917 Furosemide 20 MG DAILY 10/13 1000 AC 10/14 PO 0917 Guaifenesin 600 MG Q12 10/12 2200 AC 10/14 PO 2123 Levothyroxine Sodium 0.05 MG DAILY AC 10/13 0815 AC 10/15 PO 0514 Losartan Potassium 50 MG DAILY 10/13 1000 AC 10/14 PO 0917 Melatonin 5 MG AT BEDTIME 10/14 2200 AC 10/14 PO 2123 Methylprednisolone 40 MG DAILY 10/13 1000 DC 10/14 IV 0918 Pravastatin Sodium 20 MG 1700 10/13 1700 AC 10/14 PO 1747 Prednisone 40 MG DAILY 10/15 1000 AC PO 10/15 1001 Tiotropium [place] 1 PUF DAILY 10/13 1000 AC 10/14 INH 0917 Last 24 Hrs of Lab/[place] Results Last 24 Hrs of Labs/Mics: Microbiology 10/14 1640 URINE ROUT: Legionella Antigen - COMP 10/14 1640 URINE ROUT: Streptococcus pneumoniae Antigen (M - COMP Assessment/Plan Assessment: The patient is 72-year-old female with known history of COPD follows up with Dr. Sorto, hypertension, hyperlipidemia, hypothyroidism. She presented to [place] ED on 10/12 with complain of progressive cough productive of greenish sputum, increased dyspnea x 5days. She was seen at an urgent care center and was found to be hypoxic with pulse ox n 70's on RA. She was sent to ED for evaluation and chest x-ray. On presentation her vitals were temperature 98.8, heart rate 102-89, respiratory rate 22-20, BP 142/60-133/59, oxygen saturation 98% 10L- 96% 2L Labs were pertinent for leukocytosis with WBC count of 15.6, mild hyponatremia with sodium 130, BUN 31, transaminitis AST 100, ALT 140 alkaline phosphatase 228 Chest x-ray was positive for hyper inflation of lungs with flattening of diaphragms, patchy airspace opacities with air bronchograms and right lower lobe consistent with infiltrate -She was admitted to general medicine floor and is being treated and evaluated for Community-acquired pneumonia. Patient's symptom along with leukocytosis and right lower lobe infiltrate were consistent with CAP. She was initially treated with IV ceftriaxone and Zithromax and is being transitioned to PO Augmentin to complete 7 days course on d/c -She is also being treated for mild COPD exacerbation with IV steroids and has been transitioned to oral steroid taper(1 week) and will be d/c on zithromycin( to finish 5 day course). She has remained afebrile during her stay with white count initially trending down later up trending most likely secondary to steroids. -Patient was found to be in acute hypoxic respiratory failure at urgent care with oxygen saturation in 70s most likely secondary to CAP and COPD. She is not on home oxygen, she continues to require 2L NC to maintain o2 sats above 92%. We will try to taper her off oxygen and do ambulatory sats today. If she continues to require oxygen for maintenance of oxygen saturation she will be discharged on home oxygen -She also was found to have transaminitis most likely secondary to ongoing infectious process. Her LFTs are trending down, ultrasound of right upper quadrant showed normal size, contour and echogenicity. No focal lesion or intrahepatic biliary duct dilation. However there was 0.2 x 0.1 cm immobile echogenic focus in the posterior gallbladder wall, which may be consistent with a small calculus vs a polyp. She is asymptomatic at present. All her home medications are continued DVT prophylaxis with Alps and Lovenox Full code Problem List: 1. Pneumonia 2. COPD exacerbation Pain Ratin Pain Location: n/p Pain Goal: Pain 4 or less Pain Plan: prn Tomorrow's Labs & Rationales: none
[2017-10-15] MEDS ORDERED: AUGMENTIN 875-1 EACH PO ×3 (10:11→14:17)
[2017-10-15] MEDS ORDERED: AZITHROMYCIN250 M1 PO ×2 (10:14→14:17)
--- NOTE | 2017-10-15 13:48 | PN- Pulmonary ---
Subjective HPI/Critical Care Issues: Patient continues to feel weak and remains oxygen dependent. White count has increased which may be related to steroids. Objective Current Medications: Current Medications Sig/Dylon Start time Last Medication Dose Route Stop Time Status Admin Acetaminophen 650 MG Q6P PRN 10/13 1315 AC PO Albuterol Sulfate 3 ML Q4P PRN 10/13 1100 AC 10/15 INH 1053 Albuterol Sulfate 2 PUF Q4P PRN 10/13 1100 AC INH Amlodipine Besylate 10 MG DAILY 10/13 1000 AC 10/15 PO 1101 Amoxicillin/ 875 MG Q12 10/15 1017 DC Clavulanate Potassium PO Azithromycin 500 MG Q24H 10/15 2100 AC Dextrose/Water 250 ML IV Azithromycin 500 MG Q24H 10/13 2014 DC 10/14 Dextrose/Water 250 ML IV 2122 Benzocaine/Menthol 1 JOHANNA Q2P PRN 10/13 1500 AC 10/13 PO 2143 Benzonatate 100 MG TID 10/12 2200 AC 10/15 PO 1106 Ceftriaxone Sodium 1,000 MG Q24H 10/15 2100 AC IV Ceftriaxone Sodium 1,000 MG Q24H 10/13 2014 DC 10/14 IV 2123 Enoxaparin Sodium 40 MG DAILY 10/13 1311 AC 10/15 SC 1101 Furosemide 20 MG DAILY 10/13 1000 AC 10/15 PO 1105 Guaifenesin 600 MG Q12 10/12 2200 AC 10/15 PO 1106 Levothyroxine Sodium 0.05 MG DAILY AC 10/13 0815 AC 10/15 PO 0514 Losartan Potassium 50 MG DAILY 10/13 1000 AC 10/15 PO 1106 Melatonin 5 MG AT BEDTIME 10/14 2200 AC 10/14 PO 2123 Methylprednisolone 40 MG DAILY 10/13 1000 DC 10/14 IV 0918 Pravastatin Sodium 20 MG 1700 10/13 1700 AC 10/14 PO 1747 Prednisone 30 MG DAILY 10/17 1000 AC PO 10/18 1001 Prednisone 40 MG DAILY 10/16 1000 AC PO 10/16 1001 Prednisone 40 MG DAILY 10/15 1000 DC 10/15 PO 10/15 1001 1103 Tiotropium Model 1 PUF DAILY 10/13 1000 AC 10/15 INH 1104 Vital Signs & I&O Last 24 Hrs of Vitals and I&O: Date Time Temp Pulse Resp B/P B/P Pulse O2 O2 Flow FiO2 Mean Ox Delivery Rate 10/15 1106 80 124/62 10/15 1101 80 124/62 10/15 1053 93 Nasal 2.0L Cannula 10/15 0800 90 Nasal 2.0L Cannula 10/15 0649 98.2 74 20 129/65 96 Nasal 2.0L Cannula 10/15 0000 94 Nasal 2.0L Cannula 10/14 2340 97.9 79 20 128/62 94 Nasal 2.0L Cannula 10/14 2040 96 Nasal 2.0L Cannula 10/14 1600 94 Nasal 2.0L Cannula 10/14 1436 93 Nasal 2.0L Cannula 10/14 1428 97.4 79 20 124/60 93 Nasal 2.0L Cannula Intake & Output 10/15 1600 10/15 0800 10/15 0000 Intake Total 120 Output Total Balance 120 Intake, Oral 120 Oxygen saturation 2 L 93% exam for chest shows diminished breath sounds there are no wheezes or crackles cardiac exam shows regular S1 and S2 without murmurs Impression/Plan Impression/Plan Impression/Plan: 72-year-old woman with COPD admitted with community acquired pneumonia and acute hypoxic respiratory failure. Elevated white count is of concern though may be related to steroid administration Recommendations: Continue IV antibiotics . Repeat PA and lateral chest x-ray in view of rising white count.
[2017-10-15] MEDS ORDERED: PREDNISONE10 M2 PO (14:17)
[2017-10-15 15:01] VITALS: BP 138/68
--- NOTE | 2017-10-15 15:18 | RADIOLOGY REPORT ---
EXAMINATION: XR CHEST CLINICAL INFORMATION: Assess for pleural effusion COMPARISON: Chest x-ray dated 10/12/2017 TECHNIQUE: 2 views of the chest were obtained. FINDINGS: Stable cardiomediastinal silhouette. Stable vascular congestion. Hazy prominence of the interstitial markings, right greater than left may represent asymmetric mild interstitial edema. Slight improvement compared to the prior examination. Hazy prominence of the reticular markings right lower lung also improved compared to the prior study. No gross pleural effusion. IMPRESSION: 1. Mild prominence of the interstitial markings likely representing asymmetric mild interstitial edema demonstrating slight interval improvement. 2. Improving hazy reticular changes right mid to lower lung.
[2017-10-15 22:29] VITALS: BP 120/62
[2017-10-16 05:53] VITALS: BP 140/78
--- NOTE | 2017-10-16 07:19 | PN- Housestaff ---
Moiz TITUS,[facility] 10/16/17 0719: Subjective Follow-up For: Community-acquired pneumonia Subjective: seen and examined. Resting comfortably in bed currently on 2 L of nasal cannula. Diminished breath sounds on examination NO wheezes or crackle. On ambulation last night patient desaturated to 81% on 3 L again. Chest x-ray done yesterday showed slight improvement and no pleural effusion. Her acute desaturation is concerning, I believe we should rule out PE. Review of Systems Constitutional: Reports: see HPI. Objective Last 24 Hrs of Vital Signs/I&O Vital Signs Date Time Temp Pulse Resp B/P B/P Pulse O2 O2 Flow FiO2 Mean Ox Delivery Rate 10/16 0821 92 Nasal 2.0L Cannula 10/16 0553 98.5 81 20 140/78 94 Nasal 2.0L Cannula 10/16 0000 Nasal 2.0L Cannula 10/15 2229 98.1 88 16 120/62 95 Nasal 2.0L Cannula 10/15 1607 94 Nasal 2.0L Cannula 10/15 1600 93 Nasal 2.0L Cannula 10/15 1501 97.4 84 20 138/68 91 Nasal 2.0L Cannula 10/15 1106 80 124/62 10/15 1101 80 124/62 10/15 1053 93 Nasal 2.0L Cannula Intake & Output 10/16 1600 10/16 0800 10/16 0000 Intake Total 600 Output Total Balance 600 Intake, Oral 600 Physical Exam General Appearance: Alert, Oriented X3, Cooperative Abdomen: Normal Bowel Sounds, Soft, No Tenderness Other Physical Findings: Decreased breath sounds no wheezes or crackles Current Medications: Current Medications Sig/Dylon Start time Last Medication Dose Route Stop Time Status Admin Acetaminophen 650 MG Q6P PRN 10/13 1315 AC PO Albuterol Sulfate 3 ML EVERY 4 HRS/AWAKE 10/15 1600 AC 10/16 INH 0819 Albuterol Sulfate 3 ML Q4P PRN 10/13 1100 DC 10/15 INH 1053 Albuterol Sulfate 2 PUF Q4P PRN 10/13 1100 AC INH Amlodipine Besylate 10 MG DAILY 10/13 1000 AC 10/15 PO 1101 Amoxicillin/ 875 MG Q12 10/15 1017 DC Clavulanate Potassium PO Azithromycin 500 MG Q24H 10/15 2100 AC 10/15 Dextrose/Water 250 ML IV 2048 Azithromycin 500 MG Q24H 10/13 2014 DC 10/14 Dextrose/Water 250 ML IV 2122 Benzocaine/Menthol 1 JOHANNA Q2P PRN 10/13 1500 AC 10/13 PO 2143 Benzonatate 100 MG TID 10/12 2200 AC 10/15 PO 2101 Ceftriaxone Sodium 1,000 MG Q24H 10/15 2100 AC 10/15 IV 2049 Ceftriaxone Sodium 1,000 MG Q24H 10/13 2014 DC 10/14 IV 2123 Enoxaparin Sodium 40 MG DAILY 10/13 1311 AC 10/15 SC 1101 Furosemide 20 MG DAILY 10/13 1000 AC 10/15 PO 1105 Guaifenesin 600 MG Q12 10/12 2200 AC 10/15 PO 2101 Levothyroxine Sodium 0.05 MG DAILY AC 10/13 0815 AC 10/16 PO 0516 Losartan Potassium 50 MG DAILY 10/13 1000 AC 10/15 PO 1106 Melatonin 5 MG AT BEDTIME 10/14 2200 AC 10/15 PO 2101 Pravastatin Sodium 20 MG 1700 10/13 1700 AC 10/15 PO 1623 Prednisone 30 MG DAILY 10/17 1000 AC PO 10/18 1001 Prednisone 40 MG DAILY 10/16 1000 AC PO 10/16 1001 Prednisone 40 MG DAILY 10/15 1000 DC 10/15 PO 10/15 1001 1103 Tiotropium [place] 1 PUF DAILY 10/13 1000 AC 10/15 INH 1104 Assessment/Plan Assessment: The patient is 72-year-old female with known history of COPD follows up with Dr. Sorto, hypertension, hyperlipidemia, hypothyroidism. She presented to [place] [facility] on 10/12 with complain of progressive cough productive of greenish sputum, increased dyspnea x 5days. She was seen at an urgent care center and was found to be hypoxic with pulse ox n 70's on RA. She was sent to ED for evaluation and chest x-ray. On presentation her vitals were temperature 98.8, heart rate 102-89, respiratory rate 22-20, BP 142/60-133/59, oxygen saturation 98% 10L- 96% 2L Labs were pertinent for leukocytosis with WBC count of 15.6, mild hyponatremia with sodium 130, BUN 31, transaminitis AST 100, ALT 140 alkaline phosphatase 228 Chest x-ray was positive for hyper inflation of lungs with flattening of diaphragms, patchy airspace opacities with air bronchograms and right lower lobe consistent with infiltrate -She was admitted to general medicine floor and is being treated and evaluated for Community-acquired pneumonia. Patient's symptom along with leukocytosis and right lower lobe infiltrate were consistent with CAP. She is being treated with IV ceftriaxone and Zithromax -She is also being treated for mild COPD exacerbation with IV steroids and has been transitioned to oral steroid taper(1 week) and will be d/c on zithromycin( to finish 5 day course). She has remained afebrile during her stay with white count initially trending down later up trending most likely secondary to steroids. -Patient was found to be in acute hypoxic respiratory failure at urgent care with oxygen saturation in 70s most likely secondary to CAP and COPD. She is not on home oxygen, she continues to require 2L NC to maintain o2 sats above 92%. We will try to taper her off oxygen, on ambulation she desatted to 81% on 3 L. If she continues to require oxygen for maintenance of oxygen saturation she will be discharged on home oxygen. For her acute desaturation on ambulation PE needs to be ruled out CTA has been ordered. -She also was found to have transaminitis most likely secondary to ongoing infectious process. Her LFTs are trending down, ultrasound of right upper quadrant showed normal size, contour and echogenicity. No focal lesion or intrahepatic biliary duct dilation. However there was 0.2 x 0.1 cm immobile echogenic focus in the posterior gallbladder wall, which may be consistent with a small calculus vs a polyp. She is asymptomatic at present. All her home medications are continued DVT prophylaxis with Alps and Lovenox Full code Problem List: 1. Pneumonia 2. COPD exacerbation Pain Ratin Pain Location: n/a Pain Goal: Pain 4 or less Pain Plan: prn Tomorrow's Labs & Rationales: n/a Deandra Cardenas MD 10/16/17 1057: Attending MD Review Statement Attending Statement Attending MD Statement: examined this patient, discuss w/resident/PA/CASH MANAGEMENT SPECIALIST, agreed w/resident/PA/CASH MANAGEMENT SPECIALIST, reviewed EMR data (avail) Attending Assessment/Plan: 72F PMH COPD (Dr. Newberry), HTN, HL, and hypothyroid admitted with 5 days of fever, productive cough with green sputum, dyspnea, lethargy, and right anterior pleuritic chest pain, found to have RLL pneumonia on CXR. Patient feels much better today. She is breathing more comfortably though still has discomfort with deep inspiration. Mild wheezing on exam, saturating well on 3L NC (Not on home oxygen). 1. RLL pneumonia 2. Acute hypoxemic respiratory failure 3. Pleuritic chest pain 4. Transaminitis 5. COPD Exacerbation Plan - Continue on general medicine - Continue Ceftriaxone and Azithromycin - Follow cultures - Prednisone taper - Pulmonary consult - Motrin for pain - Titrate down oxygen as tolerated - Continue home medications - DVT PPx - Will obtain CTA chest, if normal, will discharge patient home with home oxygen and outpatient pulmonary follow up
--- NOTE | 2017-10-16 09:04 | PN- Pulmonary ---
Subjective HPI/Critical Care Issues: Patient feels improved there is no chest pain she continues to require low-flow oxygen. Chest x-ray shows no evidence of pleural effusion and right lower lobe density is somewhat improved Objective Current Medications: Current Medications Sig/Dylon Start time Last Medication Dose Route Stop Time Status Admin Acetaminophen 650 MG Q6P PRN 10/13 1315 AC PO Albuterol Sulfate 3 ML EVERY 4 HRS/AWAKE 10/15 1600 AC 10/16 INH 0819 Albuterol Sulfate 3 ML Q4P PRN 10/13 1100 DC 10/15 INH 1053 Albuterol Sulfate 2 PUF Q4P PRN 10/13 1100 AC INH Amlodipine Besylate 10 MG DAILY 10/13 1000 AC 10/15 PO 1101 Amoxicillin/ 875 MG Q12 10/15 1017 DC Clavulanate Potassium PO Azithromycin 500 MG Q24H 10/15 2100 AC 10/15 Dextrose/Water 250 ML IV 2049 Azithromycin 500 MG Q24H 10/13 2014 DC 10/14 Dextrose/Water 250 ML IV 2122 Benzocaine/Menthol 1 JOHANNA Q2P PRN 10/13 1500 AC 10/13 PO 2143 Benzonatate 100 MG TID 10/12 2200 AC 10/15 PO 2101 Ceftriaxone Sodium 1,000 MG Q24H 10/15 2100 AC 10/15 IV 2049 Ceftriaxone Sodium 1,000 MG Q24H 10/13 2014 DC 10/14 IV 2123 Enoxaparin Sodium 40 MG DAILY 10/13 1311 AC 10/15 SC 1101 Furosemide 20 MG DAILY 10/13 1000 AC 10/15 PO 1105 Guaifenesin 600 MG Q12 10/12 2200 AC 10/15 PO 2101 Levothyroxine Sodium 0.05 MG DAILY AC 10/13 0815 AC 10/16 PO 0516 Losartan Potassium 50 MG DAILY 10/13 1000 AC 10/15 PO 1106 Melatonin 5 MG AT BEDTIME 10/14 2200 AC 10/15 PO 2101 Pravastatin Sodium 20 MG 1700 10/13 1700 AC 10/15 PO 1623 Prednisone 30 MG DAILY 10/17 1000 AC PO 10/18 1001 Prednisone 40 MG DAILY 10/16 1000 AC PO 10/16 1001 Prednisone 40 MG DAILY 10/15 1000 DC 10/15 PO 10/15 1001 1103 Tiotropium [place] 1 PUF DAILY 10/13 1000 AC 10/15 INH 1104 Vital Signs & I&O Last 24 Hrs of Vitals and I&O: Vital Signs Date Time Temp Pulse Resp B/P B/P Pulse O2 O2 Flow FiO2 Mean Ox Delivery Rate 10/16 0821 92 Nasal 2.0L Cannula 10/16 0553 98.5 81 20 140/78 94 Nasal 2.0L Cannula 10/16 0000 Nasal 2.0L Cannula 10/15 2229 98.1 88 16 120/62 95 Nasal 2.0L Cannula 10/15 1607 94 Nasal 2.0L Cannula 10/15 1600 93 Nasal 2.0L Cannula 10/15 1501 97.4 84 20 138/68 91 Nasal 2.0L Cannula 10/15 1106 80 124/62 10/15 1101 80 124/62 10/15 1053 93 Nasal 2.0L Cannula Intake & Output 10/16 1600 10/16 0800 10/16 0000 Intake Total 600 Output Total Balance 600 Intake, Oral 600 Since saturation 2 L 90-94% exam for chest shows diminished breath sounds there are no wheezes or crackles cardiac exam shows a regular S1 and S2 without murmurs Impression/Plan Impression/Plan Impression/Plan: 72-year-old with significant COPD hypoxic respiratory failure acute has persistent oxygen requirements Recommendations: Continue IV antibiotics . Repeat CBCs. Rapidly taper prednisone. Obtain d- dimer. If within normal limits would not pursue CTA of elevated can pursue CTA
[2017-10-16] MEDS ORDERED: AUGMENTIN 875-1 EACH PO ×2 (09:30→17:24)
--- NOTE | 2017-10-16 11:22 | CT SCAN REPORT ---
EXAMINATION: CT ANGIOGRAM OF THE CHEST WITH AND WITHOUT CONTRAST (CT PULMONARY ANGIOGRAM FOR PE) CLINICAL INFORMATION: Desaturation on ambulation. Rule out pulmonary embolism. COMPARISON: Chest radiograph from 10/15/2017. CT performed 11/13/2015. TECHNIQUE: Prior to contrast administration, noncontrast localization images were obtained. Subsequently, multidetector volumetric imaging was performed from the thoracic inlet to below the diaphragms following the administration of 95 mL Optiray 320 intravenous contrast. No contrast reaction reported. Sagittal, coronal, and MIP oblique sagittal reformatted images were obtained on the CT workstation, uploaded to PACS, and reviewed. Total exam dose-length product 280 mGy-cm. FINDINGS: QUALITY OF STUDY/CONTRAST BOLUS: Satisfactory PULMONARY ARTERIES: No central or segmental pulmonary emboli. The main pulmonary artery is prominent, with dilatation of the right pulmonary artery measuring up to 2.9 cm. This is similar to prior. THORACIC AORTA: No aneurysm or dissection. Mild atherosclerotic calcifications. LUNG: The central airways are patent. There is bronchial wall thickening bilaterally. Mild centrilobular emphysema. There is dependent opacity in the right upper lobe along the major fissure. Subtle groundglass nodularity is seen scattered in both lungs, greatest in the right lung. No pneumothorax or pleural effusion. There is a stable 0.4 cm nodule at the right lung apex on series 2 image 42. Stable 0.2 cm nodule anteriorly in the right upper lobe on series 2 image 98. MEDIASTINUM: Normal heart size. No pericardial effusion. No hilar or mediastinal lymphadenopathy. No evidence of septal bowing or right heart strain. CHEST WALL/AXILLA: No axillary or internal mammary lymphadenopathy. OSSEOUS STRUCTURES: No acute or suspicious osseous abnormality. UPPER ABDOMEN: Unremarkable. No reflux of contrast into the hepatic veins to suggest elevated right heart pressures. IMPRESSION: 1. No pulmonary embolism. 2. Prominence of the right and left main pulmonary arteries, which can be seen in pulmonary artery hypertension. 3. Findings of COPD with mild emphysema and chronic bronchial wall thickening. 4. Scattered groundglass opacities in the lungs, greatest in the right lung. These appear increased from prior and favors infectious or inflammatory process. Dependent opacity in the right upper lobe likely atelectasis. 5. Stable small nodules in the right lung. VTE: negative
[2017-10-16 15:27] VITALS: BP 126/70
[2017-10-16] MEDS ORDERED: GUAIFENESIN ER600 MG PO (17:24)
[2017-10-16] MEDS ORDERED: PREDNISONE10 M2 PO (17:24)
== END 2017-10-16 18:24 | disposition home health service (06) | DRG 193 ==
LOC: DELPENDDIS → ERH 15:14 → 2NB 17:02 → ERHI 17:02 → ENRESERV 20:09 → ENTRNSPT 20:49 → EDTRNSPTSTS 21:04 → EDTRNSPT 21:04 → 2NB 21:09 → CMPTRNSPT 21:31 → 2NB 10-13 13:38 → ENPENDDIS 10-15 10:28 → 2NB 10-15 12:47 → ENTRNSPT 10-16 17:53 → EDTRNSPT 10-16 18:21 → EDTRNSPTSTS 10-16 18:21 → 2NB 10-16 18:24 → CMPTRNSPT 10-16 18:37
PROVIDERS: Internal Medicine; Physician Assistant Medical
DX: J18.9 Pneumonia, unspecified organism (principal); J96.01 Acute respiratory failure with hypoxia; J44.0 Chronic obstructive pulmonary disease with (acute) lower respiratory infection; J44.1 Chronic obstructive pulmonary disease with (acute) exacerbation; R74.0 Nonspecific elevation of levels of transaminase and lactic acid dehydrogenase [LDH]; Z88.1 Allergy status to other antibiotic agents; Z79.52 Long term (current) use of systemic steroids; I10 Essential (primary) hypertension; E78.5 Hyperlipidemia, unspecified
CPT/HCPCS: 2NBP; 2NBSP; 36415; 36592; 71045; 71046; 82436; 87040; 87070; 87449; 87450; 87804; 87804-59; 93005; 93010; 96374; 96375; J0456; J0696; J1650; J2920; J3490; J7060; J7512